=== PATIENT | female | born 1990 | race Caucasian/White ===

== ENCOUNTER 2017-09-18 06:03 | Emergency (ER) | payer OTHER ==
[2017-09-18 06:07] VITALS: BP 139/91
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
--- NOTE | 2017-09-18 07:20 | RADIOLOGY REPORT ---
EXAMINATION: XR HAND, RIGHT CLINICAL INFORMATION: Pain and swelling. COMPARISON: None. TECHNIQUE: PA, lateral, and oblique views of the right hand. FINDINGS: The bones and soft tissues are normal. No fracture. Alignment is anatomic. Joint spaces are maintained. No erosions or soft tissue calcifications. IMPRESSION: Normal right hand.
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
[2017-09-18] MEDS ORDERED: CYCLOBENZAPRINE10 M1 PO (09:22)
[2017-09-18] MEDS ORDERED: IBUPROFEN600 M1 PO (09:22)
== END 2017-09-18 09:31 ==
LOC: ERH 06:03 → EDBD 06:23 → ERH 06:23
DX: S09.90XA Unspecified injury of head, initial encounter (principal); S63.501A Unspecified sprain of right wrist, initial encounter; V48.5XXA Car driver injured in noncollision transport accident in traffic accident, initial encounter; Y92.488 Other paved roadways as the place of occurrence of the external cause
CPT/HCPCS: 73130-RT; 81001; 81025